=== PATIENT | female | born 1960 | race Caucasian/White ===

== ENCOUNTER → 2016-09-16 | Outpatient (CLI) | payer BC ==
[~2016-09-16] MED LIST: ANASTROZOLE1 MG PO; ATORVASTATIN CA40 MG PO; CALCIUM 500 +1 EAC2 PO; EFFEXOR75 M2 PO; HAIR, SKIN & N1 EACH PO; LEVOXYL125 MCG PO; MICROZIDE12.5 M1 PO; NOLVADEX PO; ONE DAILY WOME1 EAC1 PO; PRINIVIL5 MG PO; SUPER B-50 COM1 EACH PO; TOLTERODINE TART4 MG PO
--- NOTE | ~2016-09-16 | MU ---
Unit #: [id number] #: [id number] Patient: KRISTEL WEST [id number] [address] [address] [id number] O MR#: [id number] NAME: KRISTEL WEST : 1960 SEX: F STUDY DATE/TIME: UNIT: [facility] ROOM: STUDY DESCRIPTION: MUGA scan Attending Physician: Natan Silva M.D. Referring Physician: Natan Silva M.D. Primary Care Physician: Carl Hunter Jr., M.D. CARDIOLOGY REPORT EXAM MUGA Scan PROCEDURE 30.0 mCi of technetium 99m labeled RBCs was injected. Images were obtained in the left lateral, left anterior oblique and AP views. The left ventricular ejection fraction is calculated to be 42%. CONCLUSION The left ventricular ejection fraction is calculated to be 42% by MUGA scan. Dictated by... Rubén Cobb TD: 09/19/2016 11:11 JOB #: [id number] CC: Natan Silva M.D. CARDIOLOGY REPORT Page 1 of 1 X Cinthia Mac MD <ELECTRONICALLY SIGNED> 12/31/16 1429 CARDIOLOGY REPORT
== END | disposition home or self-care (01) ==
LOC: CNUC 13:17
DX: C50.912 Malignant neoplasm of unspecified site of left female breast (principal); L03.119 Cellulitis of unspecified part of limb
CPT/HCPCS: 78472; A9560

== ENCOUNTER → 2016-10-14 | Outpatient (CLI) | payer BC ==
--- NOTE | ~2016-10-14 | MU ---
Unit #: [id number] #: [id number] Patient: KRISTEL WEST [id number] [address] [address] [id number] O MR#: [id number] NAME: KRISTEL WEST. : 1960 SEX: F STUDY DATE/TIME: 10/14/2016 UNIT: [facility] ROOM: STUDY DESCRIPTION: MUGA scan at rest. Attending Physician: Natan Silva M.D. Primary Care Physician: Carl Hunter Jr., M.D. CARDIOLOGY REPORT EXAM MUGA scan at rest. INDICATION Left breast neoplasm. SUMMARY The patient was given technetium pertechnetate 28.7 mCi at rest, labeled in vivo. Appropriate views were obtained. FINDINGS The study is adequate. There is excellent separation between the right and left ventricles in the HUNGARIAN view, lateral view shows significant tissue attenuation artifact. Anterior wall is normal. The time volume loop shows excellent acquisition. There are no wall motion abnormalities. Ejection fraction is 58%. IMPRESSION Ejection fraction has increased to normal compared with study of 09/16/2016, where the ejection fraction was 42%. Dictated by... Chuckie Dent M.D. PJR/gz TD: 10/15/2016 07:44 JOB #: [id number] CARDIOLOGY REPORT Page 1 of 1 X Chuckie Dent MD CARDIOLOGY REPORT
== END | disposition home or self-care (01) ==
LOC: CNUC 12:14
DX: C50.912 Malignant neoplasm of unspecified site of left female breast (principal); L03.90 Cellulitis, unspecified
CPT/HCPCS: 78472; A9560

== ENCOUNTER → 2016-11-18 | Outpatient (CLI) | payer BC ==
--- NOTE | ~2016-11-18 | MU ---
Unit #: [id number] #: [id number] Patient: KRISTEL WEST [id number] [address] [address] [id number] O MR#: [id number] NAME: KRISTEL WEST : 1960 SEX: F STUDY DATE/TIME: 11/18/2016 UNIT: [facility] ROOM: STUDY DESCRIPTION: MUGA scan Attending Physician: Natan Silva M.D. Referring Physician: Natan Silva M.D. Primary Care Physician: Carl Hunter Jr., M.D. CARDIOLOGY REPORT PROCEDURE PERFORMED MUGA scan. PROCEDURE Technetium 99m-labeled RBCs, 29.3 mCi, were injected. Images were obtained in left lateral, left anterior oblique and anteroposterior views. The left ventricular ejection fraction is calculated to be 34%. CONCLUSIONS 1. The left ventricular ejection fraction is calculated to be 34% by MUGA scan. 2. There is global hypokinesis noted. Dictated by... Rubén Cobb/ariana TD: 11/18/2016 15:03 JOB #: [id number] CARDIOLOGY REPORT Page 1 of 1 X Cinthia Mac MD <ELECTRONICALLY SIGNED> 12/31/16 1428 CARDIOLOGY REPORT
== END | disposition home or self-care (01) ==
LOC: CNUC 13:22
DX: C50.912 Malignant neoplasm of unspecified site of left female breast (principal); L03.119 Cellulitis of unspecified part of limb
CPT/HCPCS: 78472; A9560

== ENCOUNTER → 2016-12-16 | Outpatient (CLI) | payer BC ==
--- NOTE | ~2016-12-16 | MU ---
Unit #: [id number] #: [id number] Patient: KRISTEL WEST [id number] [address] [address] [id number] O MR#: [id number] NAME: KRISTEL WEST : 1960 SEX: F STUDY DATE/TIME: 12/19/2016 UNIT: [facility] ROOM: STUDY DESCRIPTION: MUGA scan. Attending Physician: Natan Silva M.D. Referring Physician: Natan Silva M.D. Primary Care Physician: Carl Hunter Jr., M.D. CARDIOLOGY REPORT EXAM MUGA scan. INDICATION FOR STUDY Chemotherapy administration, LVEF monitoring. SUMMARY The patient underwent MUGA scan and received 30 mCi of technetium 99. On gated imaging the patient appears to have normal wall motion with a preserved ejection fraction. The patient's left ventricular ejection fraction is 52%. CONCLUSION 1. Normal left ventricular ejection fraction, 52%. 2. Clinical correlation needed. 3. Follow up with Dr. Natan Silva. Dictated by... Haley Velasco M.D. ME/gz TD: 12/20/2016 08:09 JOB #: [id number] CC: Natan Silva M.D. CARDIOLOGY REPORT Page 1 of 1 X HALEY VELASCO MD CARDIOLOGY REPORT
== END | disposition home or self-care (01) ==
LOC: CNUC 10:33
DX: Z51.11 Encounter for antineoplastic chemotherapy (principal); C50.912 Malignant neoplasm of unspecified site of left female breast; L03.119 Cellulitis of unspecified part of limb
CPT/HCPCS: 78472; A9560

== ENCOUNTER → 2017-02-07 | Outpatient (CLI) | payer BC ==
--- NOTE | ~2017-02-07 | TH ---
Unit #: [id number] #: [id number] Patient: KRISTEL WEST [id number] [address] [address] [id number] O MR#: [id number] NAME: KRISTEL WEST. : 1960 SEX: F STUDY DATE/TIME: 02/07/2017 UNIT: [facility] ROOM: STUDY DESCRIPTION: Attending Physician: Cinthia Mac M.D. Referring Physician: Cinthia Mac M.D. Primary Care Physician: Carl Hunter Jr., M.D. CARDIOLOGY REPORT EXAM Lexiscan Cardiolite stress test, nuclear portion. PROCEDURE Using technetium 99m labeled Cardiolite, rest and stress SPECT images were obtained. Multiple SPECT images were obtained in various views including horizontal and vertical long axis and short axis views of the left ventricle. Images were obtained by gated SPECT method. The patient was administered 11.35 mCi of Cardiolite at rest. Patient was administered 30 mCi of Cardiolite after Lexiscan infusion was completed. On the stress images, there is a [id number] sized area of moderate decreased isotope activity involving the lateral wall. The rest images also show moderate decreased isotope activity involving the lateral wall. Comparing rest and stress images, stress-induced ischemia involving the lateral wall of the left ventricle cannot be ruled out. The left ventricular ejection fraction is calculated to be 48%. The technical quality of the images is extremely poor because of patient's body habitus. CONCLUSION 1. Stress-induced ischemia involving the lateral wall of the left ventricle cannot be ruled out. 2. The left ventricular ejection fraction is calculated to be 48%. 3. The technical quality of the images is extremely poor. Clinical correlation is requested. Dictated by... Rubén Cobb TD: 02/08/2017 08:59 JOB #: [id number] Unit #: [id number] #: [id number] Patient: KRISTEL WEST CARDIOLOGY REPORT Page 1 of 1 X Cinthia Mac MD <ELECTRONICALLY SIGNED> 03/02/17 1524 CARDIOLOGY REPORT
--- NOTE | ~2017-02-07 | ST ---
Unit #: [id number] #: [id number] Patient: KRISTEL WEST [id number] [address] [address] [id number] O MR#: [id number] NAME: KRISTEL WEST. : 1960 SEX: F STUDY DATE/TIME: UNIT: [facility] ROOM: STUDY DESCRIPTION: Stress Test Attending Physician: Cinthia Mac M.D. Referring Physician: Cinthia Mac M.D. Primary Care Physician: Carl Huntre Jr., M.D. CARDIOLOGY REPORT EXAM Lexiscan Cardiolite Stress Test DESCRIPTION Baseline EKG - normal sinus rhythm with ventricular rate 65 beats per minute, slow R wave progression, peaked T waves in inferior and anterolateral leads. Left atrial abnormality. Lexiscan is a four minute test with Lexiscan being injected within the first minute followed by Cardiolite. EKG during the test was equivocal to baseline. No acute ischemic changes. The patient had no complaints of chest pain, palpitations or dizziness. Had increased shortness of breath and fatigueness which resolved in recovery phase. Maximum heart rate response was 107 beats per minute with a maximum blood pressure response of 139/83 mmHg. Cardiolite was injected after Lexiscan within the first minute of the test. Radionuclide test pending. Please correlate with nuclear images. Dictated by... Raven Peralta A.P.R.N. for Rubén Cobb/shmuel TD: 02/07/2017 12:22 JOB #: [id number] Unit #: [id number] #: [id number] Patient: KRISTEL WEST CARDIOLOGY REPORT Page 1 of 1 X Raven Peralta APRN CARDIOLOGY REPORT
== END | disposition home or self-care (01) ==
LOC: CNUC 09:00
DX: I42.9 Cardiomyopathy, unspecified (principal)
CPT/HCPCS: 78452; 93017; A9500; J2785